=== PATIENT | male | born 1955 | race Caucasian/White ===

== ENCOUNTER → 2016-11-06 | Outpatient (CLI) | payer BC | END | disposition short-term general hospital (02) | LOC: CLCARD 10:54 | DX: I10 Essential (primary) hypertension (principal); R07.9 Chest pain, unspecified; I25.10 Atherosclerotic heart disease of native coronary artery without angina pectoris; R53.83 Other fatigue ==

== ENCOUNTER → 2016-12-04 | Outpatient (CLI) | payer BC | END | disposition short-term general hospital (02) | LOC: CLCARD 09:22 | DX: I10 Essential (primary) hypertension (principal); I25.10 Atherosclerotic heart disease of native coronary artery without angina pectoris; R07.9 Chest pain, unspecified; E78.5 Hyperlipidemia, unspecified; R06.02 Shortness of breath; R53.83 Other fatigue; I49.3 Ventricular premature depolarization; Z95.1 Presence of aortocoronary bypass graft ==

== ENCOUNTER → 2017-01-01 | Outpatient (CLI) | payer BC | END | disposition short-term general hospital (02) | LOC: CLCARD 11:13 | DX: I25.10 Atherosclerotic heart disease of native coronary artery without angina pectoris (principal); I10 Essential (primary) hypertension; E78.5 Hyperlipidemia, unspecified; I49.3 Ventricular premature depolarization; Z95.1 Presence of aortocoronary bypass graft; Z72.89 Other problems related to lifestyle ==

== ENCOUNTER → 2017-01-15 | Outpatient (CLI) | payer BC | END | disposition short-term general hospital (02) | LOC: CLCARD 08:16 | DX: I25.10 Atherosclerotic heart disease of native coronary artery without angina pectoris (principal); I10 Essential (primary) hypertension; E78.5 Hyperlipidemia, unspecified; I49.3 Ventricular premature depolarization; Z95.1 Presence of aortocoronary bypass graft ==